=== PATIENT | female | born 1945 | race Caucasian/White ===

== ENCOUNTER 2021-09-30 11:52 | Emergency (ER) | payer MEDICARE, BC, OTHER ==
[~2021-09-30] VITALS: Ht 157.5 cm; Wt 54.1 kg
[2021-09-30 11:54] VITALS: BP 125/87
--- NOTE | 2021-09-30 12:30 | NUR ---
called [facility], just answering service, left a message.
[2021-09-30 12:38] LABS: BASOPHILS % (AUTO) 0.2 % (0-1); EOSINOPHILS % (AUTO) 0.9 % (0-6); HEMATOCRIT 31.2 % (35.0-45.0); HEMOGLOBIN 10.5 g/dl (12.0-16.0); LYMPHOCYTES # (AUTO) 1.9 X10'3 (1.1-4.8); LYMPHOCYTES % (AUTO) 68.8 % (21-51); MEAN CORPUSCULAR HEMOGLOBIN 28.8 PG (27.0-31.0); MEAN CORPUSCULAR HGB CONC 33.6 g/dL (33.0-36.5); MEAN CORPUSCULAR VOLUME 85.6 FL (78-98); MONOCYTES # (AUTO) 0.4 X10'3 (0-0.9); MONOCYTES % (AUTO) 13.5 % (2-12); NEUTROPHILS # (AUTO) 0.5 X10'3 (1.8-7.7); NEUTROPHILS % (AUTO) 16.6 % (42-75); PLATELET COUNT 265 X10'3 (140-440); RED BLOOD COUNT 3.65 X10'6 (4.20-5.60); RED CELL DISTRIBUTION WIDTH 14.3 % (11.5-14.5); WHITE BLOOD COUNT 2.8 X10'3 (4.5-11.0)
--- NOTE | 2021-09-30 12:50 | NUR ---
pt contact sheet from facility has ulises and maría elean barrientos as contacts. Per pt ok to speak to Pat. 12:51pm spoke to Pat, he has our number, hes a work, been informed his mom is here with us.
[2021-09-30 13:03] LABS: ALANINE AMINOTRANSFERASE 18 U/L (12-78); ALBUMIN 2.9 G/DL (3.4-5.0); ALBUMIN/GLOBULIN RATIO 0.6 (1.1-1.5); ALKALINE PHOSPHATASE 85 IU/L (46-116); ANION GAP 8 (8-16); ASPARTATE AMINO TRANSFERASE 27 U/L (10-37); BILIRUBIN,TOTAL 0.5 MG/DL (0.1-1.0); BLOOD UREA NITROGEN 13 MG/DL (7-18); BUN/CREATININE RATIO 13.3 (6.6-38.0); CALCIUM 7.7 MG/DL (8.5-10.1); CHLORIDE 109 MMOL/L (99-107); CREATININE 0.98 MG/DL (0.40-0.90); GLUCOSE 88 MG/DL (70-104); POTASSIUM 4.3 MMOL/L (3.5-5.1); SODIUM 141 MMOL/L (135-145); TOTAL CARBON DIOXIDE 24.3 MMOL/L (24-32); eGFR 55 ML/MIN
[2021-09-30 13:13] LABS: ETHANOL < 0.010 GM/DL (0.0-0.010); TOTAL CELLS COUNTED 100
[2021-09-30 13:14] LABS: PLATELET ESTIMATE NORMAL
[2021-09-30 13:15] LABS: SMUDGE CELLS 1+
--- NOTE | 2021-09-30 13:26 | NUR ---
lavonne cargo 20 min away
--- NOTE | 2021-09-30 13:42 | NUR ---
JOHNNY CARGO PRESENT
== END 2021-09-30 13:45 ==
LOC: ER 11:52
DX: F03.90 Unspecified dementia, unspecified severity, without behavioral disturbance, psychotic disturbance, mood disturbance, and anxiety (principal); F60.3 Borderline personality disorder
CPT/HCPCS: 80053; 80320; 84443; 85007; 85025; 99284; A4353